=== PATIENT | female | born 2000 | race African-American/Black ===

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

== ENCOUNTER 2018-01-02 18:08 | Emergency (ER) | payer SELFPAY, OTHER | END 2018-01-02 19:30 | disposition home or self-care (01) | LOC: ER 19:30 | DX: S40.021A Contusion of right upper arm, initial encounter (principal); J45.909 Unspecified asthma, uncomplicated; E11.9 Type 2 diabetes mellitus without complications; X58.XXXA Exposure to other specified factors, initial encounter; Y93.89 Activity, other specified; Y92.89 Other specified places as the place of occurrence of the external cause; Y99.8 Other external cause status | CPT/HCPCS: 99281 ==

== ENCOUNTER 2018-03-11 16:18 | Emergency (ER) | payer SELFPAY ==
[2018-03-11] MEDS: cefTRIAXone IM 250 MG VIAL IM (17:30)
[2018-03-11] MEDS: AZITHROMYCIN 250 MG TABLET. PO (17:30)
[2018-03-11 17:32] LABS: URINE HCG POC HCG NEGATIVE (Negative)
[2018-03-11 17:41] LABS: BILIRUBIN,URINE NEGATIVE (NEG); CLARITY,URINE CLEAR; COLOR,URINE YELLOW; GLUCOSE,URINE NEGATIVE (NEG); NITRITE,URINE NEGATIVE (NEG); PROTEIN,URINE NEGATIVE (NEG-TRACE)
[2018-03-11 18:02] LABS: BACTERIA,URINE FEW /HPF (0-FEW); RBC,URINE 0 /HPF (0-2); SQUAMOUS EPITHELIAL CELL,UR MOD /LPF; WBC,URINE OCC /HPF (0-4)
== END 2018-03-11 18:30 | disposition home or self-care (01) ==
LOC: ER 16:18
DX: Z20.2 Contact with and (suspected) exposure to infections with a predominantly sexual mode of transmission (principal); E11.9 Type 2 diabetes mellitus without complications; J45.909 Unspecified asthma, uncomplicated
CPT/HCPCS: 81001; 81025; 87491; 87591; 96372; 99284-25; J0696; Q0144

== ENCOUNTER 2018-04-07 20:44 | Emergency (ER) | payer SELFPAY | END 2018-04-07 22:29 | disposition home or self-care (01) | LOC: ER 20:44 | DX: M79.89 Other specified soft tissue disorders (principal); J45.909 Unspecified asthma, uncomplicated; E11.9 Type 2 diabetes mellitus without complications; F12.10 Cannabis abuse, uncomplicated | CPT/HCPCS: 73630; 99284 ==

== ENCOUNTER 2018-04-12 11:22 | Emergency (ER) | payer SELFPAY ==
[2018-04-12 13:13] LABS: NEGATIVE OBC STREP NEG; POSITIVE OBC STREP POS
== END 2018-04-12 12:31 | disposition home or self-care (01) ==
LOC: ER 11:22
DX: J02.9 Acute pharyngitis, unspecified (principal); J31.0 Chronic rhinitis; E11.9 Type 2 diabetes mellitus without complications; J45.909 Unspecified asthma, uncomplicated
CPT/HCPCS: 87070; 87880; 99284

== ENCOUNTER 2018-04-21 16:49 | Emergency (ER) | payer SELFPAY ==
[2018-04-21 17:17] LABS: URINE HCG POC HCG NEGATIVE (Negative)
[2018-04-21] MEDS: AZITHROMYCIN 250 MG TABLET. PO (17:45)
[2018-04-21] MEDS: DEXAMETHASONE 4 MG TABLET PO (17:46)
== END 2018-04-21 17:47 | disposition home or self-care (01) ==
LOC: ER 16:49
DX: J02.9 Acute pharyngitis, unspecified (principal); B27.90 Infectious mononucleosis, unspecified without complication; J45.909 Unspecified asthma, uncomplicated; E11.9 Type 2 diabetes mellitus without complications; F12.10 Cannabis abuse, uncomplicated
CPT/HCPCS: 81025; 99283; J8540; Q0144

== ENCOUNTER 2018-05-12 00:32 | Emergency (ER) | payer SELFPAY ==
[2018-05-12 01:02] LABS: URINE HCG POC HCG POSITIVE (Negative)
[2018-05-12 01:11] LABS: BILIRUBIN,URINE SMALL (NEG); CLARITY,URINE TURBID; COLOR,URINE YELLOW; GLUCOSE,URINE NEGATIVE (NEG); NITRITE,URINE NEGATIVE (NEG); PROTEIN,URINE NEGATIVE (NEG-TRACE)
[2018-05-12 01:18] LABS: ADD MAN DIFF? NO
[2018-05-12 01:20] LABS: BASO # 0.1 x10^3/uL (0.0-0.2); BASO % 1 % (0-3); EOS # 0.2 x10^3/uL (0.0-0.7); EOS % 2 % (0-3); HEMATOCRIT 38.3 % (36.0-47.0); HEMOGLOBIN 12.7 g/dL (12.0-15.5); LYMPH # 2.5 x10^3/uL (1.0-4.8); LYMPH % 22 % (24-48); MEAN CORPUSCULAR HEMOGLOBIN 27 pg (25-35); MEAN CORPUSCULAR HGB CONC 33 g/dL (31-37); MEAN CORPUSCULAR VOLUME 80 fL (79-100); MONO # 1.2 x10^3/uL (0.0-1.1); MONO % 11 % (0-9); NEUT # 7.3 x10^3uL (1.8-7.7); NEUT % 65 % (31-73); PLATELET COUNT 289 x10^3/uL (140-400); RED CELL DISTRIBUTION WIDTH 14.5 % (11.5-14.5); WHITE BLOOD COUNT 11.3 x10^3/uL (4.0-11.0)
[2018-05-12 01:21] LABS: BACTERIA,URINE FEW /HPF (0-FEW); RBC,URINE 0 /HPF (0-2); SQUAMOUS EPITHELIAL CELL,UR MOD /LPF
[2018-05-12 01:29] LABS: ANION GAP 12 (6-14); BLOOD UREA NITROGEN 12 mg/dL (7-20); BUN/CREATININE RATIO 15 (6-20); CALCIUM 9.2 mg/dL (8.5-10.1); CARBON DIOXIDE 24 mmol/L (21-32); CHLORIDE 104 mmol/L (98-107); CREATININE 0.8 mg/dL (0.6-1.0); GFR 111.8; GLUCOSE 94 mg/dL (70-99); POTASSIUM 3.8 mmol/L (3.5-5.1); SODIUM 140 mmol/L (136-145)
[2018-05-12 01:35] LABS: ALBUMIN 3.9 g/dL (3.4-5.0); ALK PHOS 54 U/L (46-116); ALT (SGPT) 19 U/L (14-59); AST (SGOT) 24 U/L (15-37); LIPASE 142 U/L (73-393); TOTAL BILIRUBIN 0.5 mg/dL (0.2-1.0); TOTAL PROTEIN 7.7 g/dL (6.4-8.2)
[2018-05-13 14:31] LABS: CHLAMYDIA PROBE Negative (Negative); GC PROBE Negative (Negative)
== END 2018-05-12 03:41 | disposition home or self-care (01) ==
LOC: ER 00:32
DX: O26.899 Other specified pregnancy related conditions, unspecified trimester (principal); O99.519 Diseases of the respiratory system complicating pregnancy, unspecified trimester; O24.919 Unspecified diabetes mellitus in pregnancy, unspecified trimester; J45.909 Unspecified asthma, uncomplicated; R10.30 Lower abdominal pain, unspecified; N89.8 Other specified noninflammatory disorders of vagina
CPT/HCPCS: 36415; 76801; 76817; 80053; 81001; 81025; 83690; 84702; 85025; 86900; 86901; 87086; 87491; 87591; 99285-25; Q0111

== ENCOUNTER 2018-05-31 20:24 | Inpatient (IN) | payer SELFPAY ==
[2018-05-31 20:40] LABS: URINE HCG POC HCG POSITIVE (Negative)
[2018-05-31 20:46] LABS: BILIRUBIN,URINE NEGATIVE (NEG); CLARITY,URINE CLEAR; COLOR,URINE YELLOW; GLUCOSE,URINE NEGATIVE (NEG); NITRITE,URINE NEGATIVE (NEG); PH,URINE 6.5; PROTEIN,URINE NEGATIVE (NEG-TRACE)
[2018-05-31 21:02] LABS: BACTERIA,URINE MODERATE /HPF (0-FEW); RBC,URINE 0 /HPF (0-2); SQUAMOUS EPITHELIAL CELL,UR MANY /LPF
[2018-05-31 21:38] LABS: ADD MAN DIFF? NO
[2018-05-31 21:47] LABS: BASO # 0.1 x10^3/uL (0.0-0.2); BASO % 1 % (0-3); EOS # 0.1 x10^3/uL (0.0-0.7); EOS % 1 % (0-3); HEMATOCRIT 36.8 % (36.0-47.0); HEMOGLOBIN 12.2 g/dL (12.0-15.5); LYMPH # 2.6 x10^3/uL (1.0-4.8); LYMPH % 25 % (24-48); MEAN CORPUSCULAR HEMOGLOBIN 27 pg (25-35); MEAN CORPUSCULAR HGB CONC 33 g/dL (31-37); MEAN CORPUSCULAR VOLUME 81 fL (79-100); MONO # 1.1 x10^3/uL (0.0-1.1); MONO % 10 % (0-9); NEUT # 6.5 x10^3uL (1.8-7.7); NEUT % 63 % (31-73); PLATELET COUNT 239 x10^3/uL (140-400); RED BLOOD COUNT 4.53 x10^6/uL (3.50-5.40); RED CELL DISTRIBUTION WIDTH 14.6 % (11.5-14.5); WHITE BLOOD COUNT 10.3 x10^3/uL (4.0-11.0)
[2018-05-31 21:54] LABS: ANION GAP 5 (6-14); BLOOD UREA NITROGEN 12 mg/dL (7-20); CALCIUM 8.6 mg/dL (8.5-10.1); CARBON DIOXIDE 27 mmol/L (21-32); CHLORIDE 105 mmol/L (98-107); CREATININE 0.9 mg/dL (0.6-1.0); GFR 97.6; GLUCOSE 87 mg/dL (70-99); POTASSIUM 3.5 mmol/L (3.5-5.1); SODIUM 137 mmol/L (136-145)
[2018-06-01] MEDS: IV NORMAL SALINE 1000ML BAG 1,000 ML IV (01:10)
[2018-06-01 06:32] LABS: ADD MAN DIFF? NO
[2018-06-01 06:47] LABS: ANION GAP 8 (6-14); BLOOD UREA NITROGEN 10 mg/dL (7-20); CALCIUM 8.3 mg/dL (8.5-10.1); CARBON DIOXIDE 23 mmol/L (21-32); CHLORIDE 105 mmol/L (98-107); CREATININE 0.9 mg/dL (0.6-1.0); GFR 97.6; GLUCOSE 92 mg/dL (70-99); POTASSIUM 3.3 mmol/L (3.5-5.1); SODIUM 136 mmol/L (136-145)
[2018-06-01 06:57] LABS: BASO % 0 % (0-3); EOS # 0.1 x10^3/uL (0.0-0.7); EOS % 1 % (0-3); HEMATOCRIT 37.6 % (36.0-47.0); HEMOGLOBIN 12.5 g/dL (12.0-15.5); LYMPH % 20 % (24-48); MEAN CORPUSCULAR HEMOGLOBIN 27 pg (25-35); MEAN CORPUSCULAR HGB CONC 33 g/dL (31-37); MEAN CORPUSCULAR VOLUME 82 fL (79-100); MONO # 0.8 x10^3/uL (0.0-1.1); MONO % 8 % (0-9); NEUT # 7.2 x10^3uL (1.8-7.7); NEUT % 72 % (31-73); PLATELET COUNT 238 x10^3/uL (140-400); RED BLOOD COUNT 4.61 x10^6/uL (3.50-5.40); RED CELL DISTRIBUTION WIDTH 14.4 % (11.5-14.5); WHITE BLOOD COUNT 10.1 x10^3/uL (4.0-11.0)
[2018-06-01] MEDS ORDERED: fentaNYL PF VIAL 100 MCG/2 ML VIAL ×2 (08:10→09:03)
[2018-06-01] MEDS ORDERED: ONDANSETRON PF 4 MG/2 ML VIAL. (08:35)
[2018-06-01] MEDS ORDERED: SEVOFLURANE 16 TO 30 MINUTES. IH (08:35)
[2018-06-01] MEDS ORDERED: DEXAMETHASONE SOD PHOS 20 MG/5 ML VIAL. (08:35)
[2018-06-01] MEDS ORDERED: PROPOFOL 20 ML IV (08:35)
[2018-06-01] MEDS ORDERED: OXYTOCIN 10 UNIT/ML VIAL. ×2 (08:36)
[2018-06-01] MEDS ORDERED: LIDOCAINE 2% PF Vial for OR 5 ML VIAL. (08:36)
[2018-06-01] MEDS ORDERED: IV RINGERS,LACTATED 1000ML 1,000 ML IV (09:05)
[2018-06-01] MEDS: fentaNYL PF VIAL 100 MCG/2 ML VIAL IV ×2 (09:14→09:26)
[2018-06-01] MEDS ORDERED: fentaNYL PF VIAL 100 MCG/2 ML VIAL IV (09:15)
[2018-06-01] MEDS ORDERED: MORPHINE SULFATE 2 MG/ML DISP.SYRIN. IV ×2 (09:15)
[2018-06-01] MEDS ORDERED: LIDOCAINE 1% PF 2 ML VIAL. ID (09:15)
[2018-06-01] MEDS ORDERED: ONDANSETRON PF 4 MG/2 ML VIAL. IV ×2 (09:15)
[2018-06-01] MEDS ORDERED: PROCHLORPERAZINE 10 MG/2 ML VIAL. (09:31)
[2018-06-01] MEDS: PROCHLORPERAZINE 10 MG/2 ML VIAL. IV (09:34)
[2018-06-01] MEDS: IBUPROFEN 800 MG TABLET. PO (13:03)
[2018-06-02 15:23] LABS: CHLAMYDIA PROBE Negative (Negative); GC PROBE Negative (Negative)
== END 2018-06-01 14:00 | disposition home or self-care (01) | DRG 770 ==
LOC: 3 NORTH 23:56 → ER 20:24
PROC: 10D17ZZ Extraction of Products of Conception, Retained, Via Natural or Artificial Opening (ICD-10-PCS; principal; 2018-06-01 08:00)
DX: O03.4 Incomplete spontaneous abortion without complication (principal); O24.111 Pre-existing type 2 diabetes mellitus, in pregnancy, first trimester; O23.591 Infection of other part of genital tract in pregnancy, first trimester; O02.1 Missed abortion; E11.9 Type 2 diabetes mellitus without complications; B96.89 Other specified bacterial agents as the cause of diseases classified elsewhere; J45.909 Unspecified asthma, uncomplicated; N76.0 Acute vaginitis; F12.90 Cannabis use, unspecified, uncomplicated; Z3A.01 Less than 8 weeks gestation of pregnancy
CPT/HCPCS: 36415; 76801; 76817; 80048; 81001; 81025; 84702; 85025; 86850; 86900; 86901; 87086; 87491; 87591; 99285-25; J0690; J0780; J1100; J2001; J2405; J2590; J2704; J3010; J3490; J7030; J7120; Q0111

== ENCOUNTER 2018-06-07 02:30 | Emergency (ER) | payer OTHER ==
[2018-06-07 03:03] LABS: URINE HCG POC HCG POSITIVE (Negative)
[2018-06-07 03:28] LABS: ADD MAN DIFF? NO
[2018-06-07 03:33] LABS: BASO # 0.1 x10^3/uL (0.0-0.2); BASO % 1 % (0-3); EOS # 0.2 x10^3/uL (0.0-0.7); EOS % 1 % (0-3); HEMATOCRIT 39.2 % (36.0-47.0); HEMOGLOBIN 12.9 g/dL (12.0-15.5); LYMPH # 3.3 x10^3/uL (1.0-4.8); LYMPH % 30 % (24-48); MEAN CORPUSCULAR HEMOGLOBIN 27 pg (25-35); MEAN CORPUSCULAR HGB CONC 33 g/dL (31-37); MEAN CORPUSCULAR VOLUME 82 fL (79-100); MONO # 0.8 x10^3/uL (0.0-1.1); MONO % 7 % (0-9); NEUT # 6.8 x10^3uL (1.8-7.7); NEUT % 61 % (31-73); PLATELET COUNT 290 x10^3/uL (140-400); RED BLOOD COUNT 4.81 x10^6/uL (3.50-5.40); RED CELL DISTRIBUTION WIDTH 14.8 % (11.5-14.5); WHITE BLOOD COUNT 11.2 x10^3/uL (4.0-11.0)
[2018-06-07 03:45] LABS: ANION GAP 11 (6-14); BLOOD UREA NITROGEN 14 mg/dL (7-20); BUN/CREATININE RATIO 16 (6-20); CALCIUM 8.6 mg/dL (8.5-10.1); CARBON DIOXIDE 25 mmol/L (21-32); CHLORIDE 103 mmol/L (98-107); CREATININE 0.9 mg/dL (0.6-1.0); GFR 97.6; GLUCOSE 88 mg/dL (70-99); POTASSIUM 4.1 mmol/L (3.5-5.1); SODIUM 139 mmol/L (136-145)
[2018-06-07 03:50] LABS: ALBUMIN 3.6 g/dL (3.4-5.0); ALBUMIN/GLOBULIN RATIO 0.9 (1.0-1.7); ALK PHOS 58 U/L (46-116); ALT (SGPT) 9 U/L (14-59); AST (SGOT) 17 U/L (15-37); TOTAL BILIRUBIN 0.3 mg/dL (0.2-1.0); TOTAL PROTEIN 7.4 g/dL (6.4-8.2)
[2018-06-07] MEDS: HYDROcodone/APAP 7.5/325MG 1 TAB TABLET PO (04:28)
[2018-06-07] MEDS: medroxyPROGESTERone IM 150 MG/ML VIAL. IM (05:56)
== END 2018-06-07 06:37 | disposition home or self-care (01) ==
LOC: ER 02:30
DX: N93.9 Abnormal uterine and vaginal bleeding, unspecified (principal); E11.9 Type 2 diabetes mellitus without complications; J45.909 Unspecified asthma, uncomplicated
CPT/HCPCS: 36415; 76830; 80053; 81025; 85025; 96372; 99285-25

== ENCOUNTER 2018-08-11 12:08 | Emergency (ER) | payer OTHER ==
[~2018-08-11] VITALS: Ht 160 cm; Wt 104.3 kg
[~2018-08-11 12:08] MED LIST changes: +AMOX875T PO; +AZIT250T PO; +AZIT250T6 PO; +FLUT9.9S NS; +HYDR-971 PO; +IBUP-1007 PO; +IBUP-1060 PO; +METH0.2T36 PO; +NAPR-514 PO; +PROAIR HFA8.5 GM INH
[2018-08-11 14:00] VITALS: BP 132/69
--- NOTE | 2018-08-11 14:15 | PHYS DOC ---
Past Medical History Past Medical History: Asthma, Diabetes-Type II Additional Past Medical Histor: strep Past Surgical History: Other Additional Past Surgical Histo: L GANGLION CYST REMOVAL Alcohol Use: Occasionally Drug Use: Marijuana Adult General Chief Complaint Chief Complaint: VAGINAL PROBLEM HPI HPI 17-year-old female presents for evaluation of a tender nodule near her vaginal area for 3 weeks. She reports it is gotten slightly bigger. There's been no draining. She has no other concerns. Review of Systems Review of Systems Constitutional: Denies fever or chills [] Eyes: Denies change in visual acuity, redness, or eye pain [] HENT: Denies nasal congestion or sore throat [] Respiratory: Denies cough or shortness of breath [] Cardiovascular: No additional information not addressed in HPI [] GI: Denies abdominal pain, nausea, vomiting, bloody stools or diarrhea [] : Denies dysuria or hematuria [] All other systems were reviewed and found to be within normal limits, except as documented in this note. Allergies Allergies Allergies Coded Allergies Type Severity Reaction Last Updated Verified No Known Drug Allergies 04/16/14 No Physical Exam Physical Exam Constitutional: Well developed, well nourished, no acute distress, non-toxic appearance. [] HENT: Normocephalic, atraumatic, bilateral external ears normal, oropharynx moist, no oral exudates, nose normal. [] Cardiovascular:Heart rate regular rhythm, no murmur [] Lungs & Thorax: Bilateral breath sounds clear to auscultation [] Skin: Warm, dry, no erythema, no rash. [] gu: Small, less than 1 cm abscess on left upper inner thigh, no fluctuance or induration, at base of a hair follicle Neurologic: Alert and oriented X 3, normal motor function, normal sensory function, no focal deficits noted. [] Psychologic: Affect normal, judgement normal, mood normal. [] Current Patient Data Vital Signs Vital Signs Date Time Temp Pulse Resp B/P (MAP) Pulse Ox O2 Delivery O2 Flow Rate FiO2 08/11/18 14:00 98.6 72 12 132/69 (90) 99 Room Air 98.6 EKG EKG [] Radiology/Procedures Radiology/Procedures [] Course & Med Decision Making Course & Med Decision Making Discussed with patient no clinical indication at this time for incision and drainage, the nodule is very small, recommend warm water tub soaks, will give her a prescription for Bactroban. Follow up with primary care doctor. Zaynab Disclaimer Zaynab Disclaimer This electronic medical record was generated, in whole or in part, using a voice recognition dictation system. Departure Departure Impression: Primary Impression: Abscess Disposition: 01 HOME, SELF-CARE Condition: STABLE Referrals: NO PCP (PCP) Patient Instructions: Abscess Scripts Mupirocin Calcium (BACTROBAN CREAM) 15 Gm Cream..g. 1 MEENU TP TID, #30 GM 0 Refills Prov: KARIE WEBB APRN 08/11/18 KARIE WEBB APRN Aug 11, 2018 14:15
[2018-08-11] MEDS ORDERED: MUPI15CR TP (14:23)
== END 2018-08-11 14:35 | disposition home or self-care (01) ==
LOC: ER 12:08
DX: L02.416 Cutaneous abscess of left lower limb (principal); J45.909 Unspecified asthma, uncomplicated; E11.9 Type 2 diabetes mellitus without complications
CPT/HCPCS: 99283

== ENCOUNTER 2018-09-23 09:05 | Emergency (ER) | payer OTHER ==
[~2018-09-23] VITALS: Ht 160 cm; Wt 99.8 kg
[~2018-09-23 09:05] MED LIST changes: +MUPI15CR TP
[2018-09-23 09:19] VITALS: BP 147/79
[2018-09-23] MEDS ORDERED: AMOX500T PO (09:37)
[2018-09-23] MEDS ORDERED: IBUP-1060 PO (09:37)
[2018-09-23] MEDS ORDERED: PROAIR HFA8.5 GM INH (09:38)
--- NOTE | 2018-09-23 20:10 | PHYS DOC ---
Past Medical History Past Medical History: Asthma Additional Past Medical Histor: strep Past Surgical History: Other Additional Past Surgical Histo: L GANGLION CYST REMOVAL Alcohol Use: Occasionally Drug Use: Marijuana Adult General Chief Complaint Chief Complaint: SORE THROAT HPI HPI Patient is a 17 year old female who presents with sore throat. Patient has been ill over the last 3-4 days. She complains of sore throat primarily. She has pain with swallowing but no difficulty swallowing. She has not had a fever. She has had some mild headaches that are described to be diffuse. No neck stiffness. No rashes. No cough. No additional upper respiratory congestion. Review of Systems Review of Systems Constitutional: Denies fever or chills Eyes: Denies change in visual acuity HENT: Denies nasal congestion Respiratory: Denies cough or shortness of breath Cardiovascular: No additional information GI: Denies abdominal pain, nausea Musculoskeletal: Denies back pain Integument: Denies rash Neurologic: Denies focal neuro complaints All other systems were reviewed and found to be within normal limits, except as documented in this note. Allergies Allergies Allergies Coded Allergies Type Severity Reaction Last Updated Verified No Known Drug Allergies 04/16/14 No Physical Exam Physical Exam Constitutional: Well developed, well nourished, no acute distress, non-toxic HENT: Normocephalic, atraumatic, bilateral external ears normal, oropharynx moist, posterior oral pharynx is injected. There are some palatal petechiae present. No exudates. No tonsillar swelling. Eyes: PERRLA, EOMI, conjunctiva normal, no discharge Neck: Normal range of motion, no tenderness, supple Cardiovascular:Heart rate regular rhythm, no murmur Lungs & Thorax: Bilateral breath sounds clear to auscultation Skin: Warm, dry, no rash Neurologic: Alert and oriented X 3 Psychologic: Affect normal Current Patient Data Vital Signs Vital Signs Date Time Temp Pulse Resp B/P (MAP) Pulse Ox O2 Delivery O2 Flow Rate FiO2 09/23/18 09:19 98.5 92 18 147/79 (101) 98 Room Air 98.5 Lab Values Laboratory Tests Test 09/23/18 09:35 09/23/18 10:14 POC Urine HCG, Qualitative Hcg negative (Negative) Hcg negative (Negative) EKG EKG [] Radiology/Procedures Radiology/Procedures [] Course & Med Decision Making Course & Med Decision Making Pertinent Labs and Imaging studies reviewed. (See chart for details) Patient was evaluated in the emergency department for pharyngitis. She had physical exam findings and history of present illness suspicious for strep. Urine was completed and was negative. Patient was discharged home with amoxicillin and ibuprofen. Return precautions discussed and she is advised to return to the ER for any new or worsening symptoms. Otherwise, follow up with her primary care doctor. Zaynab Disclaimer Dragon Disclaimer This electronic medical record was generated, in whole or in part, using a voice recognition dictation system. Departure Departure Impression: Primary Impression: Pharyngitis Disposition: HOME, SELF-CARE Condition: GOOD Patient Instructions: Sore Throat, Oioz-gh-Xucc Scripts Albuterol Sulfate (PROAIR HFA INHALER) 8.5 Gm Hfa.aer.ad 1 PUFF INH PRN Q6HRS PRN for SHORTNESS OF BREATH, #1 INHALER 2 Refills Prov: REY SIMMONS DO 09/23/18 Amoxicillin (AMOXICILLIN) 500 Mg Tablet 1 TAB PO TID, #21 TAB Prov: REY SIMMONS DO 09/23/18 Ibuprofen (IBUPROFEN) 800 Mg Tablet 800 MG PO PRN TID PRN for PAIN, #21 TAB take with food or milk to avoid upsetting stomach Prov: REY SIMMONS DO 09/23/18 REY SIMMONS DO Sep 23, 2018 20:10
== END 2018-09-23 09:42 | disposition home or self-care (01) ==
LOC: ER 09:05
DX: J02.9 Acute pharyngitis, unspecified (principal); R51 Headache; J45.909 Unspecified asthma, uncomplicated
CPT/HCPCS: 81025; 99283

== ENCOUNTER 2018-10-07 20:00 | Emergency (ER) | payer OTHER ==
[~2018-10-07] VITALS: Ht 160 cm; Wt 99.8 kg
[~2018-10-07 20:00] MED LIST changes: +AMOX500T PO
[2018-10-07 20:02] VITALS: BP 172/82
[2018-10-07] MEDS ORDERED: PRED50TA PO (20:19)
[2018-10-07] MEDS ORDERED: AMOX500T PO (20:19)
--- NOTE | 2018-10-07 20:20 | PHYS DOC ---
Past Medical History Past Medical History: Asthma Additional Past Medical Histor: strep Past Surgical History: Other Additional Past Surgical Histo: L GANGLION CYST REMOVAL, D&C Alcohol Use: Occasionally Drug Use: Marijuana Adult General Chief Complaint Chief Complaint: MULTIPLE COMPLAINTS [facility] Patient is a 18 year old Female who presents with head congestion, cough, right ear pain and pressure and a sore throat for the last 3 weeks. Patient states the cough is nonproductive. Patient states when she blows her nose that is yellow-green. Patient states she hasn't been taking any pzny-rex-dcmyeou cold medicine and she will takes albuterol daily for her asthma as needed. Patient had a miscarriage and had a D&C back in May. Patient states that she is not . Review of Systems Review of Systems Constitutional: Denies fever or chills [] Eyes: Denies change in visual acuity, redness, or eye pain [] HENT: Nasal congestion and sore throat [] Respiratory: Nonproductive cough. Denies shortness of breath [] Cardiovascular: No additional information not addressed in HPI [] GI: Denies abdominal pain, nausea, vomiting, bloody stools or diarrhea [] : Denies dysuria or hematuria [] Musculoskeletal: Denies back pain or joint pain [] Integument: Denies rash or skin lesions [] Neurologic: Denies headache, focal weakness or sensory changes [] All other systems were reviewed and found to be within normal limits, except as documented in this note. Allergies Allergies Allergies Coded Allergies Type Severity Reaction Last Updated Verified No Known Drug Allergies 04/16/14 No Physical Exam Physical Exam Constitutional: Well developed, well nourished, no acute distress, non-toxic appearance. [] HENT: Normocephalic, atraumatic, bilateral external ears normal, oropharynx moist, no oral exudates, nose normal. Right ear tympanic is red. [] Eyes: PERRLA, EOMI, conjunctiva normal, no discharge. [] Neck: Normal range of motion, no tenderness, supple, no stridor. [] Cardiovascular:Heart rate regular rhythm, no murmur [] Lungs & Thorax: Bilateral breath sounds clear to auscultation [] Abdomen: Bowel sounds normal, soft, no tenderness, no masses, no pulsatile masses. [] Skin: Warm, dry, no erythema, no rash. [] Back: No tenderness, no CVA tenderness. [] Extremities: No tenderness, no cyanosis, no clubbing, ROM intact, no edema. [] Neurologic: Alert and oriented X 3, normal motor function, normal sensory function, no focal deficits noted. [] Psychologic: Affect normal, judgement normal, mood normal. [] Current Patient Data Vital Signs Vital Signs Date Time Temp Pulse Resp B/P (MAP) Pulse Ox O2 Delivery O2 Flow Rate FiO2 10/07/18 20:02 98.9 101 18 172/82 (112) 98 Room Air 98.9 EKG EKG [] Radiology/Procedures Radiology/Procedures [] Course & Med Decision Making Course & Med Decision Making Patient is a 18 year old Female who presents with head congestion, cough, right ear pain and pressure and a sore throat for the last 3 weeks. Patient states the cough is nonproductive. Patient states when she blows her nose that is yellow-green. Patient states she hasn't been taking any kopo-djb-sywpxvq cold medicine and she will takes albuterol daily for her asthma as needed. Patient had a miscarriage and had a D&C back in May. Patient states that she is not . And peak warm and dry. Alert and oriented. Lungs are clear to auscultation all lobes. Patient speaks in full clear sentences. Patient has no sinus pain with palpation. Patient's throat is red but there are no exudates or swelling. Patient's right ear drum is red. Patient's left ear tympanic is pearly white. She is no known drug allergies. Patient rates her pain a 4 out of 10 and states is his drop in her right ear. Patient is given amoxicillin and prednisone and told to follow-up with her primary care next couple days. Dragon Disclaimer Dragon Disclaimer This electronic medical record was generated, in whole or in part, using a voice recognition dictation system. Departure Departure Impression: Primary Impression: Upper respiratory infection Additional Impression: Right ear pain Disposition: 01 HOME, SELF-CARE Condition: STABLE Referrals: NO PCP (PCP) Patient Instructions: Upper Respiratory Infection, Adult Additional Instructions: TAKE MEDICATIONS PRESCRIBED. FOLLOW UP WITH YOUR PRIMARY CARE. Scripts Amoxicillin (AMOXICILLIN) 500 Mg Tablet 1 TAB PO TID, #30 TAB Prov: PAULETTE RICHARDSOumar Gonzales [employer] 10/07/18 Prednisone (PREDNISONE) 50 Mg Tablet 1 TAB PO DAILY, #5 TAB Prov: QUIRINO RICHARDS APRN 10/07/18 Problem Qualifiers Primary Impression: Upper respiratory infection URI type: unspecified URI Qualified Codes: J06.9 - Acute upper respiratory infection, unspecified QUIRINO RICHARDS APRN Oct 07, 2018 20:20
== END 2018-10-07 20:26 | disposition home or self-care (01) ==
LOC: ER 20:00
DX: J06.9 Acute upper respiratory infection, unspecified (principal); H92.01 Otalgia, right ear; J45.909 Unspecified asthma, uncomplicated
CPT/HCPCS: 99283

== ENCOUNTER 2019-02-05 19:46 | Emergency (ER) | payer OTHER ==
[~2019-02-05] VITALS: Ht 160 cm; Wt 104.3 kg
[~2019-02-05 19:46] MED LIST changes: +ALBU2.5V8 INH; +HYDR-3164 PO; -HYDR-971 PO; +PRED50TA PO; -PROAIR HFA8.5 GM INH
[2019-02-05 20:40] VITALS: BP 156/85
[2019-02-05] MEDS ORDERED: ALBU1.25 NEB (21:13)
[2019-02-05] MEDS ORDERED: VENTOLIN HFA18 GM INH (21:13)
--- NOTE | 2019-02-05 21:13 | PHYS DOC ---
Past Medical History Past Medical History: Asthma, Diabetes-Type II Additional Past Medical Histor: strep Past Surgical History: Other Additional Past Surgical Histo: L GANGLION CYST REMOVAL, D&C Alcohol Use: Occasionally Drug Use: Marijuana Adult General Chief Complaint Chief Complaint: MEDICATION REFILL [facility] HPI Patient is a 18 year old female with history of asthma and diabetes type 2, who presents to the ED today requesting a refill for albuterol breathing treatments for home use. Patient states he ran out of the medications a couple days ago. Patient denies any symptoms. Review of Systems Review of Systems Constitutional: Denies fever or chills [] Eyes: Denies change in visual acuity, redness, or eye pain [] HENT: Denies nasal congestion or sore throat [] Respiratory: Requests refill for asthma medications. Denies cough or shortness of breath [] Cardiovascular: No additional information not addressed in HPI [] GI: Denies abdominal pain, nausea, vomiting, bloody stools or diarrhea [] : Denies dysuria or hematuria [] Musculoskeletal: Denies back pain or joint pain [] Integument: Denies rash or skin lesions [] Neurologic: Denies headache, focal weakness or sensory changes [] All other systems were reviewed and found to be within normal limits, except as documented in this note. Allergies Allergies Allergies Coded Allergies Type Severity Reaction Last Updated Verified No Known Drug Allergies 04/16/14 No Physical Exam Physical Exam Constitutional: Well developed, well nourished, no acute distress, non-toxic appearance. [] HENT: Normocephalic, atraumatic, bilateral external ears normal, oropharynx moist, no oral exudates, nose normal. [] Eyes: PERRLA, EOMI, conjunctiva normal, no discharge. [] Neck: Normal range of motion, no tenderness, supple, no stridor. [] Cardiovascular:Heart rate regular rhythm, no murmur [] Lungs & Thorax: Bilateral breath sounds clear to auscultation [] Abdomen: Bowel sounds normal, soft, no tenderness, no masses, no pulsatile masses. [] Skin: Warm, dry, no erythema, no rash. [] Back: No tenderness, no CVA tenderness. [] Extremities: No tenderness, no cyanosis, no clubbing, ROM intact, no edema. [] Neurologic: Alert and oriented X 3, normal motor function, normal sensory function, no focal deficits noted. [] Psychologic: Affect normal, judgement normal, mood normal. [] Current Patient Data Vital Signs Vital Signs Date Time Temp Pulse Resp B/P (MAP) Pulse Ox O2 Delivery O2 Flow Rate FiO2 02/05/19 20:40 98.2 84 20 156/85 (108) 99 Room Air 98.2 EKG EKG [] Radiology/Procedures Radiology/Procedures [] Course & Med Decision Making Course & Med Decision Making Pertinent Labs and Imaging studies reviewed. (See chart for details) This is a 18-year-old female patient presenting to the ED today requesting albuterol breathing treatments. Prescription was given. Follow-up with PCP as needed. Dragon Disclaimer Dragon Disclaimer This electronic medical record was generated, in whole or in part, using a voice recognition dictation system. Departure Departure Impression: Primary Impression: Medication refill Disposition: HOME, SELF-CARE Condition: STABLE Referrals: NO PCP (PCP) follow up with a doctor from list provided next week Patient Instructions: Asthma, Adult, [id number]-[id number] Additional Instructions: We gave a prescription for asthma medications, use it as prescribed. Follow-up with your doctor in 1-2 weeks. Scripts Albuterol Sulfate (ALBUTEROL SULFATE NEB SOLN) 1.25 Mg/3 Ml Vial.neb 1 VIAL NEB Q6HRS, #150 ML Prov: GAGAN AMARAL APRN 02/05/19 Albuterol Sulfate (VENTOLIN HFA INHALER) 18 Gm Hfa.aer.ad 2 PUFF INH Q4HRS for FOR ASTHMA, #1 INHALER 0 Refills Prov: GAGAN AMARAL APRN 02/05/19 GAGAN AMARAL APRN Feb 05, 2019 21:13
== END 2019-02-05 21:21 | disposition home or self-care (01) ==
LOC: ER 19:46
DX: J45.909 Unspecified asthma, uncomplicated (principal); E11.9 Type 2 diabetes mellitus without complications; Z76.0 Encounter for issue of repeat prescription
CPT/HCPCS: 99283

== ENCOUNTER 2019-08-25 14:11 | Emergency (ER) | payer SELFPAY ==
[~2019-08-25] VITALS: Ht 160 cm; Wt 122.5 kg
[~2019-08-25 14:11] MED LIST changes: +ALBU1.25 NEB; +VENTOLIN HFA18 GM INH
[2019-08-25] MEDS ORDERED: IV NORMAL SALINE 500ML BAG 500 ML IV ONE (15:15)
--- NOTE | 2019-08-25 15:17 | PHYS DOC ---
Past Medical History Past Medical History: Asthma, Diabetes-Type II Additional Past Medical Histor: strep Past Surgical History: Other Additional Past Surgical Histo: L GANGLION CYST REMOVAL, D&C Alcohol Use: Occasionally Drug Use: Marijuana Adult General Chief Complaint Chief Complaint: SYNCOPE HPI HPI Patient is a 18 year old female who presents with complaining of syncope. Patient states she went to donate plasma and before starting the process had a syncopal episode without chest pain, focal neuro deficit, fever and chills, nausea and vomiting, fall and injury. Patient stated she donated plasma frequently without problem for the last 2 years and ate breakfast this morning. Patient states she still feels weak. Patient also complaining of chronic right foot pain for 2 months after she had laceration repair in other place and states since then she has had pain that getting worse with walking. She states her LMP was August 09. Review of Systems Review of Systems Constitutional: Denies fever or chills [] Eyes: Denies change in visual acuity, redness, or eye pain [] HENT: Denies nasal congestion or sore throat [] Respiratory: Denies cough or shortness of breath [] Cardiovascular: No additional information not addressed in HPI [] GI: Denies abdominal pain, nausea, vomiting, bloody stools or diarrhea [] : Denies dysuria or hematuria [] Musculoskeletal: Denies back pain, reports joint pain [] Integument: Denies rash or skin lesions [] Neurologic: Denies headache, focal weakness or sensory changes [] Endocrine: Denies polyuria or polydipsia [] All other systems were reviewed and found to be within normal limits, except as documented in this note. Current Medications Current Medications Current Medications Medications (Trade) Dose Ordered Sig/Idris Start Time Stop Time Status Last Admin Dose Admin Sodium Chloride 500 ml @ 500 mls/hr 1X ONCE 08/25/19 15:15 08/25/19 16:14 DC 08/25/19 15:25 500 MLS/HR Allergies Allergies Allergies Coded Allergies Type Severity Reaction Last Updated Verified No Known Drug Allergies 04/16/14 No Physical Exam Physical Exam Constitutional: Well developed, well nourished, no distress, non-toxic appearance, morbidly obese. [] HENT: Normocephalic, atraumatic. Eyes: PERRLA, EOMI, conjunctiva normal, no discharge. [] Neck: Normal range of motion, no tenderness, supple, no stridor. [] Cardiovascular:Heart rate regular rhythm, no murmur [] Lungs & Thorax: Bilateral breath sounds clear to auscultation [] Abdomen: Bowel sounds normal, soft, no tenderness, no masses, no pulsatile masses. [] Skin: Warm, dry, no erythema, no rash. [] Back: No tenderness, no CVA tenderness. [] Extremities: No tenderness, no cyanosis, no clubbing, ROM intact, no edema, scar of right foot without sign of infection. [] Neurologic: Alert and oriented X 3, no focal deficits noted. [] Psychologic: Affect normal, judgement normal, mood normal. [] Current Patient Data Vital Signs Vital Signs Date Time Temp Pulse Resp B/P (MAP) Pulse Ox O2 Delivery O2 Flow Rate FiO2 08/25/19 14:20 97.9 80 14 155/81 (105) 99 Room Air 97.9 Lab Values Laboratory Tests Test 08/25/19 15:05 08/25/19 15:25 POC Urine HCG, Qualitative Hcg negative (Negative) White Blood Count 11.5 x10^3/uL (4.0-11.0) H Red Blood Count 4.75 x10^6/uL (3.50-5.40) Hemoglobin 11.9 g/dL (12.0-15.5) L Hematocrit 36.5 % (36.0-47.0) Mean Corpuscular Volume 77 fL (79-100) L Mean Corpuscular Hemoglobin 25 pg (25-35) Mean Corpuscular Hemoglobin Concent 33 g/dL (31-37) Red Cell Distribution Width 14.5 % (11.5-14.5) Platelet Count 258 x10^3/uL (140-400) Neutrophils (%) (Auto) 73 % (31-73) Lymphocytes (%) (Auto) 19 % (24-48) L Monocytes (%) (Auto) 6 % (0-9) Eosinophils (%) (Auto) 1 % (0-3) Basophils (%) (Auto) 1 % (0-3) Neutrophils # (Auto) 8.5 x10^3/uL (1.8-7.7) H Lymphocytes # (Auto) 2.2 x10^3/uL (1.0-4.8) Monocytes # (Auto) 0.7 x10^3/uL (0.0-1.1) Eosinophils # (Auto) 0.1 x10^3/uL (0.0-0.7) Basophils # (Auto) 0.1 x10^3/uL (0.0-0.2) Sodium Level 138 mmol/L (136-145) Potassium Level 3.6 mmol/L (3.5-5.1) Chloride Level 104 mmol/L (98-107) Carbon Dioxide Level 23 mmol/L (21-32) Anion Gap 11 (6-14) Blood Urea Nitrogen 12 mg/dL (7-20) Creatinine 0.9 mg/dL (0.6-1.0) Estimated GFR (Cockcroft-Gault) 96.6 BUN/Creatinine Ratio 13 (6-20) Glucose Level 104 mg/dL (70-99) H Calcium Level 9.2 mg/dL (8.5-10.1) Magnesium Level 1.8 mg/dL (1.8-2.4) Total Bilirubin 0.5 mg/dL (0.2-1.0) Aspartate Amino Transferase (AST) 19 U/L (15-37) Alanine Aminotransferase (ALT) 12 U/L (14-59) L Alkaline Phosphatase 52 U/L (46-116) Total Protein 7.5 g/dL (6.4-8.2) Albumin 3.3 g/dL (3.4-5.0) L Albumin/Globulin Ratio 0.8 (1.0-1.7) L Laboratory Tests 08/25/19 15:25 Laboratory Tests 08/25/19 15:25 EKG EKG EKG interpreted by me. EKG at 1532 showed normal sinus rhythm at rate of 74, normal TN and QT intervals, no acute ST and T-wave abnormalities.[] Radiology/Procedures Radiology/Procedures [] Course & Med Decision Making Course & Med Decision Making Pertinent Labs reviewed. (See chart for details) Evaluation of patient in ER showed 18-year-old female patient with a syncopal episode before hospitalization. Patient had unremarkable physical exam and labs except for hemoglobin of 11.9 and orthostatic vitals. Patient also complaining of chronic foot pain for 2 months and was advised to follow-up with her primary care physician regarding chronic pain. Dragon Disclaimer Dragon Disclaimer This electronic medical record was generated, in whole or in part, using a voice recognition dictation system. Departure Departure Impression: Primary Impression: Vasovagal syncope Additional Impressions: Anemia Chronic toe pain, left foot Disposition: HOME, SELF-CARE (at 1637) Condition: IMPROVED Referrals: NO PCP (PCP) Patient Instructions: Anemia, FAQs, Chronic Pain, Syncope Additional Instructions: Drink plenty of liquids Follow-up with your primary care physician in 3-5 days Return to ER if not getting better Problem Qualifiers Additional Impressions: Anemia Anemia type: unspecified type Qualified Codes: D64.9 - Anemia, unspecified MORENITA DELEON MD Aug 25, 2019 15:17
[2019-08-25 15:38] LABS: BASO # 0.1 x10^3/uL (0.0-0.2); BASO % 1 % (0-3); EOS # 0.1 x10^3/uL (0.0-0.7); EOS % 1 % (0-3); HEMATOCRIT 36.5 % (36.0-47.0); HEMOGLOBIN 11.9 g/dL (12.0-15.5); LYMPH # 2.2 x10^3/uL (1.0-4.8); LYMPH % 19 % (24-48); MEAN CORPUSCULAR HEMOGLOBIN 25 pg (25-35); MEAN CORPUSCULAR HGB CONC 33 g/dL (31-37); MEAN CORPUSCULAR VOLUME 77 fL (79-100); MONO # 0.7 x10^3/uL (0.0-1.1); MONO % 6 % (0-9); NEUT # 8.5 x10^3/uL (1.8-7.7); NEUT % 73 % (31-73); PLATELET COUNT 258 x10^3/uL (140-400); RED BLOOD COUNT 4.75 x10^6/uL (3.50-5.40); RED CELL DISTRIBUTION WIDTH 14.5 % (11.5-14.5); WHITE BLOOD COUNT 11.5 x10^3/uL (4.0-11.0)
[2019-08-25 15:54] LABS: CALCIUM 9.2 mg/dL (8.5-10.1); CREATININE 0.9 mg/dL (0.6-1.0); GFR 96.6; POTASSIUM 3.6 mmol/L (3.5-5.1)
--- NOTE | 2019-08-25 16:08 | EKG ---
[facility] [address] [place] [address] Test Date: 2019-08-25 Test Time: 15:32:25 Pat Name: KATHLEEN ROBBINS Department: Room: Gender: F Benefits Advisor: : 2000 Requested By: MORENITA DELEON Order Number: [id number] Reading MD: Measurements Intervals Blunt Rate: 74 P: 34 FL: 162 QRS: 71 QRSD: 82 T: 8 QT: 380 QTc: 422 Interpretive Statements SINUS RHYTHM NO SPECIFIC ECG ABNORMALITIES RI6.01 No previous ECG available for comparison
[2019-08-25 16:09] LABS: ALBUMIN 3.3 g/dL (3.4-5.0); ALBUMIN/GLOBULIN RATIO 0.8 (1.0-1.7); MAGNESIUM 1.8 mg/dL (1.8-2.4); TOTAL BILIRUBIN 0.5 mg/dL (0.2-1.0); TOTAL PROTEIN 7.5 g/dL (6.4-8.2)
[2019-08-25 16:30] VITALS: BP 139/67
== END 2019-08-25 16:50 | disposition home or self-care (01) ==
LOC: ER 14:11
DX: R55 Syncope and collapse (principal); D64.9 Anemia, unspecified; M79.675 Pain in left toe(s); M79.671 Pain in right foot; G89.29 Other chronic pain; J45.909 Unspecified asthma, uncomplicated; E11.9 Type 2 diabetes mellitus without complications
CPT/HCPCS: 36415; 80053; 81025; 83735; 85025; 93005; 96360; 99285; J7040